=== PATIENT | female | born 1990 | race Caucasian/White ===

== ENCOUNTER 2022-02-17 11:37 | Emergency (ER) | payer OTHER, MEDICAID, SELFPAY ==
[2022-02-17 11:49] VITALS: BP 116/56; PULSE 73; RESP 16; TEMP 36.3; O2SAT 100; BMI 20.2
--- NOTE | 2022-02-17 12:39 | ED.SKABFB ---
HPI - Skin/Abscess/Foreign Bdy <BINA Rosa - Last Filed: 02/17/22 14:02> General Chief complaint: Skin/Abscess/Foreign Body Stated complaint: rash on neck/head itchy+pain Time Seen by Provider: 02/17/22 12:21 Source: patient Mode of arrival: Ambulatory History of Present Illness HPI narrative: This is a 31-year-old female history of ADHD and anxiety who presents to the emergency department with a rash on the nape of her neck and base of her scalp. She states that she just her hair a few days ago and this rash came afterwards but she also endorses that she has been dying her hair since she was young and this is never happened to her before. She states that it is itchy, there is some flaking, it is erythematous and mildly swollen. It extends bilaterally but rash is only in 1 location at this base of the neck into her scalp approximately mcc up her occipital scalp. She denies any fever, states that she has been using chamomile and aloe vera gel to calm down the burn. She has taken some Benadryl and nighttime. She denies a history of this in the past. She denies any fever. She denies taking any new medications. Related Data Previous Rx's Medication Instructions Recorded hydrocortisone 1 % topical cream 1 applic TOPICAL TID PRN #28.4 g 02/17/22 hydroxyzine HCl 10 mg tablet 10 mg PO TID PRN #14 tab 02/17/22 ketoconazole 2 % shampoo 1 applic TOPICAL 2XW #120 ml 02/17/22 Allergies Allergy/AdvReac Type Severity Reaction Status Date / Time No Known Drug Allergies Allergy Verified 02/17/22 12:48 Review of Systems <BINA Rosa - Last Filed: 02/17/22 14:02> Review of Systems Narrative: General: denies fever, chills, malaise, sweats, fatigue Head/Neck: denies headache, neck pain, dizziness Eyes: denies visual changes, eye pain Cardio: denies chest pain, palpitations, edema Respiratory: denies dyspnea, cough, orthopnea GI: denies abdominal pain, nausea, vomiting, or diarrhea : denies dysuria, hematuria, urinary retention, frequency or incontinence MSK: denies joint pain, muscle weakness Skin: Endorses neck and scalp rash with itching, denies any other skin lesions Neuro: denies numbness, tingling Patient History <BINA Rosa - Last Filed: 02/17/22 14:02> Social History Smoking Status: Current every day smoker Smoking Status: Current every day smoker tobacco type: cigarettes and vaping alcohol intake frequency: 0-2 drinks per day Substance Use Type: marijuana Exam <BINA Rosa - Last Filed: 02/17/22 14:02> Narrative Exam Narrative: Independently reviewed vitals signs and nursing notes. General: cooperative, comfortable, in no acute distress, well developed and well groomed Head: atraumatic, symmetrical facial expressions Neck: supple, atraumatic, without lymphadenopathy. Posterior neck with maculopapular rash Eyes: pupils equal round and reactive, EOMI, conjunctiva normal Nose: nares patent, no rhinorrhea Mouth/Throat: uvula midline, moist mucus membranes Cardiovascular: regular rate and rhythm, no peripheral edema, warm extremities Respiratory: normal effort, able to speak in complete sentences, no audible wheezing, stridor, or rales. No retractions or tachypnea. MSK: moves all extremities, ambulatory w/steady gait, neurovascularly intact, no weakness Skin: Maculopapular raised pink rash with some plaques and flaking/crusting, no significant edema or drainage. Areas of excoriation, no pustules or vesicles. Neuro: normal speech and cognition, A&O x3, normal tone Psych: mental status is grossly normal, congruent mood, normal affect, pleasant and cooperative Initial Vital Signs Initial Vital Signs: Vital Signs Temperature 97.3 F L 02/17/22 11:49 Pulse Rate 73 02/17/22 11:49 Respiratory Rate 16 02/17/22 11:49 Blood Pressure 116/56 L 02/17/22 11:49 Pulse Oximetry 100 02/17/22 11:49 <Tay Quiles DO - Last Filed: 02/18/22 10:30> Initial Vital Signs Initial Vital Signs: Vital Signs Temperature 97.3 F L 02/17/22 11:49 Pulse Rate 73 02/17/22 11:49 Respiratory Rate 16 02/17/22 11:49 Blood Pressure 116/56 L 02/17/22 11:49 Pulse Oximetry 100 02/17/22 11:49 Course <BINA Rosa - Last Filed: 02/17/22 14:02> Orders Ordered: Discontinued Medications Hydrocortisone (Hydrocortisone 1% Cream 28 Gm) 1 applic TOP NOW ONE Stop: 02/17/22 12:34 Last Admin: 02/17/22 12:42 Dose: 1 applic Documented by: LIZETH Hydroxyzine Pamoate (Hydroxyzine Pamoate 25 Mg Capsule) 25 mg PO NOW ONE Stop: 02/17/22 12:31 Last Admin: 02/17/22 12:42 Dose: 25 mg Documented by: LIZETH Ketoconazole (Ketoconazole 2% Cream 15 Gm) 1 applic TOP NOW ONE Stop: 02/17/22 12:31 Last Admin: 02/17/22 12:42 Dose: 1 applic Documented by: LIZETH Vital Signs Vital signs: Vital Signs - 8 hr 02/17/22 11:49 Temperature 97.3 F L Pulse Rate 73 Respiratory Rate 16 Blood Pressure 116/56 L Pulse Oximetry 100 <Tay Quiles DO - Last Filed: 02/18/22 10:30> Orders Ordered: Discontinued Medications Hydrocortisone (Hydrocortisone 1% Cream 28 Gm) 1 applic TOP NOW ONE Stop: 02/17/22 12:34 Last Admin: 02/17/22 12:42 Dose: 1 applic Documented by: LIZETH Hydroxyzine Pamoate (Hydroxyzine Pamoate 25 Mg Capsule) 25 mg PO NOW ONE Stop: 02/17/22 12:31 Last Admin: 02/17/22 12:42 Dose: 25 mg Documented by: LIZETH Ketoconazole (Ketoconazole 2% Cream 15 Gm) 1 applic TOP NOW ONE Stop: 02/17/22 12:31 Last Admin: 02/17/22 12:42 Dose: 1 applic Documented by: LIZETH Vital Signs Vital signs: Vital Signs - 8 hr 02/17/22 11:49 Temperature 97.3 F L Pulse Rate 73 Respiratory Rate 16 Blood Pressure 116/56 L Pulse Oximetry 100 MDM - Skin/Abscess/Foreign Bdy <BINA Rosa - Last Filed: 02/17/22 14:02> MDM Narrative Medical decision making narrative: This is a 31-year-old female presents to the emergency department for rash on the nape of her neck which extends up the back of her scalp. This looks most like seborrheic dermatitis although patient endorses dying her hair just prior to this rash breaking out so it is possible with a combination of a contact dermatitis/seborrheic dermatitis. Opted to give patient both the low potency hydrocortisone cream and ketoconazole cream with a shampoo to use 2 times per week. Patient is given a prescription of hydroxyzine for pruritus. Recommend follow-up with dermatology if not improved or PCP. Gave patient strict return precautions. She has not started any new medications or had any new exposure to chemicals/infectious material. Patient has not had any fever. Patient is appropriate and amenable to discharge home. Vital signs are stable on repeat examination is unremarkable. Patient has been informed of results. Patient has been given strict return to ER precautions for any new or worsening symptoms. Patient understands to follow up closely with outpatient providers as instructed. Patient understands plan and agrees to discharge home. All questions and concerns answered at this time. Discharge Plan Departure Patient Disposition: Home Clinical Impression: Acute seborrheic dermatitis Contact dermatitis Qualifiers: Contact dermatitis type: unspecified Contact dermatitis trigger: dye Qualified Code(s): L25.2 - Unspecified contact dermatitis due to dyes Instructions: Seborrheic Dermatitis, Contact Dermatitis Activity Restrictions/Additional Instructions: *You have been diagnosed with seborrheic dermatitis versus contact dermatitis of your scalp from hair dye. The chamfer who 2 times a week starting today. After your shower you can apply that hydrocele cortisone cream for itching, the ketoconazole cream over the rash to help it go way. Any can take hydroxyzine as needed for itching. Please follow-up with dermatology or your primary care provider if this is not improved. This should improve within the next 1-3 days. You can apply the hydrocortisone cream to the areas the but please do not apply it for more than 2-3 days in a row because it makes the skin fragile. I hope you feel better soon *What to do: *Please continue to take your regular medications as directed. [x ] New medication prescriptions sent to your pharmacy: [[facility] ] [ ] New medication written as a paper prescription [ ] No new medications given *Please follow up with your primary care provider in 2-3 days, call for an appointment. Let them know you were seen in the Emergency Department and that we asked that you be seen for follow-up. We will electronically transmit a record of today's note if your PCP is in our system *If you do not have a primary care provider please contact [phone] to establish care with one of the [facility] primary care providers. *Return to Emergency Department if you should have any new, worsening or concerning symptoms, such as [fever greater than 101F, chills, worsening pain, persistent vomiting or other bothersome symptoms] Prescriptions: New hydrocortisone 1 % cream 1 applic topical TID PRN (Reason: rash) Qty: 28.4 0RF hydroxyzine HCl 10 mg tablet 10 mg PO TID PRN (Reason: itching) Qty: 14 0RF ketoconazole 2 % shampoo 1 applic topical 2XW Qty: 120 0RF <Tay Quiles DO - Last Filed: 02/18/22 10:30> Cosign ED Attending Cosignature Attestation: I was immediately available in the department for consultation. This documentation has been reviewed and I agree with assessment and plan. Supervised by Tay Quiles DO
[2022-02-17] MEDS: HYDROCORTISONE 1% CREAM 28 GM 1 APPLIC TOP (12:42)
[2022-02-17] MEDS: hydrOXYzine pamoate 25 MG CAPSULE PO (12:42)
[2022-02-17] MEDS: KETOCONAZOLE 2% CREAM 15 GM 1 APPLIC TOP (12:42)
== END 2022-02-17 12:49 | disposition home or self-care (01) ==
PROVIDERS: Emergency Provider Nurse Practitioner Critical Care Medicine
DX: L21.9 Seborrheic dermatitis, unspecified (principal); L24.89 Irritant contact dermatitis due to other agents
CPT/HCPCS: 99283

== ENCOUNTER 2022-05-03 20:16 | Emergency (ER) | payer OTHER, MEDICAID, SELFPAY ==
[2022-05-03 20:24] VITALS: BP 105/66; PULSE 69; RESP 15; TEMP 36.6; O2SAT 100; BMI 19.9
== END 2022-05-03 22:59 | disposition left against medical advice (07) ==
PROVIDERS: Emergency Provider Emergency Medicine
CPT/HCPCS: 99282